=== PATIENT | female | born 1960 | race Caucasian/White ===

== ENCOUNTER 2018-09-02 05:51 | Day surgery (SDC) | payer OTHER ==
[2018-09-02] MEDS ORDERED: FENTAnyl 50 MCG/ML VIAL (08:03)
[2018-09-02] MEDS ORDERED: MIDAZOLAM 1 MG/ML 2 ML INJ ×2 (08:03)
== END 2018-09-02 11:52 | disposition home or self-care (01) ==
LOC: GIL 05:51
DX: K29.50 Unspecified chronic gastritis without bleeding (principal); K21.9 Gastro-esophageal reflux disease without esophagitis; K44.9 Diaphragmatic hernia without obstruction or gangrene
CPT/HCPCS: 43239; 88305; 88312